=== PATIENT | male | born 1990 | race African-American/Black ===

== ENCOUNTER 2017-08-14 10:36 | Emergency (ER) | payer SELFPAY ==
[~2017-08-14] VITALS: Ht 182.9 cm; Wt 95.5 kg
[2017-08-14 10:52] VITALS: BP 127/81
[2017-08-14] MEDS ORDERED: PREDNISONE20 MG PO (11:46)
[2017-08-14] MEDS ORDERED: MOTRIN800 MG PO (11:48)
== END 2017-08-14 12:11 | disposition home or self-care (01) ==
LOC: EME 10:36
DX: J02.8 Acute pharyngitis due to other specified organisms (principal); Z87.891 Personal history of nicotine dependence
CPT/HCPCS: 87651 90; 99281; 99284; J1100

== ENCOUNTER 2017-08-16 12:40 | Emergency (ER) | payer SELFPAY ==
[~2017-08-16] VITALS: Ht 182.9 cm; Wt 94.5 kg
[~2017-08-16 12:40] MED LIST: MOTRIN800 MG PO; PREDNISONE20 MG PO
[2017-08-16 13:06] LABS: HEMATOCRIT 44.3 % (38.0-50.0); MCH 30.7 PG (29.0-34.0); MCHC 33.9 G/DL (30.0-36.0); MCV 90.6 FL (86-99); PLATELET COUNT 240 K/uL (156-360); RBC DIS.WIDTH-CV 12.5 % (11.8-14.6); RBC DIS.WIDTH-SD 41.4 % (39-53); RED BLOOD COUNT 4.89 M/uL (4.00-5.50); WHITE BLOOD COUNT 7.9 K/uL (4.1-10.2)
[2017-08-16 13:15] LABS: CHLORIDE 105 mEq/L (99-109); POTASSIUM 3.7 mEq/L (3.7-5.4)
[2017-08-16 13:16] LABS: SODIUM 141 mEq/L (136-147)
[2017-08-16 13:18] LABS: GLUCOSE 113 mg/dL (70-99); TOTAL PROTEIN 7.2 g/dL (6.4-8.3)
[2017-08-16 13:20] LABS: TOTAL BILIRUBIN 0.4 mg/dL (0.0-1.0)
[2017-08-16 13:21] LABS: ALKALINE PHOSPHATASE 69 IU/L (3-129); CREATININE 1.3 mg/dL (0.6-1.3); GFR ESTIMATE (CALCULATED) > 59 mL/min/ (58.99-99999)
[2017-08-16 13:23] LABS: AST (GOT) 12 IU/L (2-34); UREA NITROGEN (BUN) 12 mg/dL (9-23)
[2017-08-16 13:24] LABS: ALT (GPT) 13 IU/L (3-49)
[2017-08-16 13:25] LABS: LIPASE 25 U/L (1.0-51.0)
[2017-08-16] MEDS ORDERED: ZOFRAN4 MG PO (13:32)
[2017-08-16 14:05] VITALS: BP 137/86
== END 2017-08-16 14:05 | disposition home or self-care (01) ==
LOC: EME 12:40
PROVIDERS: Physician Assistant
DX: R11.2 Nausea with vomiting, unspecified (principal); R10.9 Unspecified abdominal pain
CPT/HCPCS: 80053; 83690; 85027; 99281; 99285; J2270; J2405; J7030; S0028

== ENCOUNTER 2018-02-03 15:20 | Emergency (ER) | payer SELFPAY ==
[~2018-02-03] VITALS: Ht 182.9 cm; Wt 90.0 kg
[~2018-02-03 15:20] MED LIST changes: +ZOFRAN4 MG PO
[2018-02-03 16:10] LABS: SOURCE URINE
[2018-02-03 16:15] LABS: APPEARANCE SL.HAZY ((CLEAR)); BILIRUBIN NEGATIVE; BLOOD MODERATE; COLOR YELLOW ((YELLOW)); GLUCOSE (STRIP) NEGATIVE; KETONES NEGATIVE; LEUKOCYTES LARGE; NITRITE NEGATIVE; PROTEIN (STRIP) NEGATIVE; SPECIFIC GRAVITY 1.019 (1.000-1.030)
[2018-02-03 16:21] LABS: BACTERIA 1+ /HPF; EPITHELIAL CELLS NONE SEEN /HPF; MUCUS TRACE /LPF; RED BLOOD CELLS 15-20 /HPF (0-5); UCUL ADDED? YES; WHITE BLOOD CELLS TNTC /HPF (0-5)
[2018-02-03 17:14] VITALS: BP 118/70
[2018-02-04 12:54] LABS: CHLAMYDIA TRACHOMATIS POSITIVE; NEISSERIA GONORRHOEAE POSITIVE
== END 2018-02-03 17:15 | disposition home or self-care (01) ==
LOC: EME 15:20
PROVIDERS: Physician Assistant
DX: R36.9 Urethral discharge, unspecified (principal); R30.0 Dysuria; Z11.3 Encounter for screening for infections with a predominantly sexual mode of transmission; N39.0 Urinary tract infection, site not specified
CPT/HCPCS: 81003; 87086; 87491; 87591; 99281; 99284; J0696